=== PATIENT | female | born 1990 | race Caucasian/White ===

== ENCOUNTER → 2017-07-13 | Outpatient (CLI) | payer OTHER ==
[~2017-07-13] MED LIST: GLC500 PO; PRENTAB26 PO
--- NOTE | 2017-07-14 07:54 | MAMMOGRAPHY REPORT ---
ULTRASOUND OF RIGHT BREAST: 07/13/2017 CLINICAL HISTORY: 26-year-old woman with a history of right reduction mammoplasty presents with an ar ea of tenderness and pain along the inferior aspect of her mammoplasty scar in the 6:00 axis. No def inite palpable mass or skin changes. No nipple discharge reported. COMPARISON: No prior exams were available for comparison. FINDINGS: Real-time high-resolution ultrasound was performed in the area of pain pointed out by the patient, in the 6:00 right breast, 9 cm from the nipple, in the area of scarring from prior reduction mammoplasty. In the area of concern there is a palpable divot of soft fatty tissue. No discrete ma ss palpated. On ultrasound, sonographically normal tissue is seen without a suspicious solid or cyst ic mass. No suspicious skin thickening is appreciated. No drainable fluid collection. IMPRESSION: ACR BI-RADS CATEGORY 2: BENIGN There is no sonographic evidence of malignancy or other suspicious abnormality in the area of pain al debbie the mammoplasty scar in the 6:00 right breast. Therefore, clinical follow-up is recommended. Re consultation with the patient's breast surgeon may also be useful. These results and recommendations were discussed with the patient at the time of the exam. Quyen Cool M.D. ay/:07/13/2017 16:37:06 Needle Board Repairer: Dorina KRAMER)([place]), [facility] letter sent: Normal 1/2 BI-RADS Code: ACR BI-RADS Category 2: Benign
== END | disposition home or self-care (01) ==
LOC: C.MAMM 13:13 → MERGE 13:15
PROVIDERS: ATTEND Physician Assistant
DX: N64.4 Mastodynia (principal)

== ENCOUNTER → 2017-08-03 | Outpatient (CLI) | payer OTHER ==
[2017-08-03 13:38] LABS: CALCULATED INSULIN SENSITIVITY 0.291; GLUCOSE LOG 1.9395; INSULIN FASTING 31.5 mU/L (3-25); INSULIN LOG 1.4983
== END | disposition home or self-care (01) ==
LOC: C.LAB1850 11:14
PROVIDERS: ATTEND Obstetrics & Gynecology
DX: E28.2 Polycystic ovarian syndrome (principal)